=== PATIENT | male | born 1980 | race Asian ===

== ENCOUNTER 2020-08-13 08:13 | Emergency (ER) | payer BC, SELFPAY ==
--- NOTE | 2020-08-13 08:19 | ED.URI ---
HPI - URI/Sore Throat General Chief Complaint: Upper Respiratory Infection Stated Complaint: sore throat Time Seen by Provider: 08/13/20 08:32 Source: patient and RN notes reviewed Mode of arrival: ambulatory Limitations: no limitations History of Present Illness HPI Narrative: 40-year-old male presents with concern for swollen lymph node on the left side of his neck. He reports he is concerned he could have strep throat, because he had strep throat before and it made him very sick. He denies sore throat, headache, nausea, rhinorrhea, nasal congestion, cough, shortness of breath, fever, body aches, chills, sweats. Denies any known sick contacts. Denies the area gets larger or smaller when he eats. Reports it is tender only when he touches it. Reports he noticed the area 3 days ago. MD elicited complaint: sore throat Related Data Home Medications Medication Instructions Recorded Confirmed nortriptyline 08/13/20 08/13/20 Allergies Allergy/AdvReac Type Severity Reaction Status Date / Time SEASONAL ALLERGENS Allergy Mild Uncoded 01/06/10 19:32 Review of Systems Review of Systems: Narrative: CONSTITUTIONAL: Denies malaise, chills, sweats, or fever. EYES: Denies visual changes, redness, or discharge. ENT: Denies rhinorrhea, congestion, sinus pain, otalgia and sore throat. Reports swollen lymph node CARDIOVASCULAR: Denies chest pain, palpitations, or edema. RESPIRATORY: Denies cough or dyspnea. GASTROINTESTINAL: Denies abdominal pain, nausea, vomiting, diarrhea SKIN: Denies rash or itching. MUSCULOSKELETAL: Denies myalgia. NEUROLOGIC: Denies headache. All systems reviewed & are unremarkable except as noted in HPI and below PMFSH Social History Social History Gender identity (if verbalized by the patient): Male Comments At time of signature, agree with nursing past medical, surgical, social and family history. There is no relevant family history pertinent to the presenting complaint Exam Narrative: Exam Narrative: GENERAL: Well-appearing, well-nourished, and in no acute distress. HEAD: Normocephalic EYES: PERRLA, conjunctivae clear ENT: Nares clear, turbinates clear, discharge. Mucous membranes moist. TM pearly canchola with sharp light reflex bilaterally; no tragal tenderness. Oropharynx not erythematous without lesions. Tonsils not enlarged and without exudate, no drooling, no hoarseness, no trismus, uvula midline. NECK: Supple. Mild left submental lymphadenopathy CHEST: Clear to auscultation, breath sounds equal. No wheezing, rhonchi, rales, or stridor. No respiratory distress, speaks in full sentences. HEART: Regular rate and rhythm. No murmur heard. SKIN: Warm, dry, no rash. NEURO: Alert and oriented x3. PSYCH: Normal mood and affect Course Course Emergency Course: Patient is aware of diagnosis, understands and agrees to treatment plan. Anticipatory guidance given. Patient agrees to follow-up as directed and is aware of reasons to seek care at the emergency department. Portions of this record may have been created with voice recognition software Vital Signs Vital signs: Vital Signs Temperature 96.8 F L 08/13/20 08:31 Pulse Rate 86 08/13/20 08:31 Respiratory Rate 16 08/13/20 08:31 Blood Pressure 143/99 H 08/13/20 08:31 Pulse Oximetry 98 08/13/20 08:31 Temperature 96.8 F L 08/13/20 08:31 Pulse Rate 86 08/13/20 08:31 Respiratory Rate 16 08/13/20 08:31 Blood Pressure 143/99 H 08/13/20 08:31 Pulse Oximetry 98 08/13/20 08:31 Reviewed. MDM - URI/Sore Throat MDM Narrative Medical decision making narrative: Differential diagnosis considered: Thomas virus, strep pharyngitis, allergic rhinitis, upper respiratory tract infection, sinusitis, rhinosinusitis, nasopharyngitis. viral pharyngitis, otitis media, otitis externa, pneumonia, bronchitis, viral cough syndrome, viral syndrome, and influenza. Exam findings show no acute concerns or changes; patient is non-toxic appearing and is
[2020-08-13 08:31] VITALS: BP 143/99; PULSE 86; RESP 16; TEMP 36; O2SAT 98
== END 2020-08-13 08:45 | disposition home or self-care (01) ==
PROVIDERS: Emergency Provider Nurse Practitioner
DX: R59.1 Generalized enlarged lymph nodes (principal)
CPT/HCPCS: 87081; 87880; 99213; G0463

== ENCOUNTER 2023-11-17 08:21 | Outpatient (CLI) | payer BC, SELFPAY ==
--- NOTE | 2023-12-03 18:58 | WPDSLEEPSTUD ---
Sleep Study Date of Study: 11/17/23 Ordering Provider: Dinah Arechiga MD Interpreting Physician: Dinah Arechiga MD Sleep Study Type: Polysomnogram Height: 1.85 m Weight: 108.862 kg Body Mass Index: 31.6 Neck Circumference (inches): 17 [place]: 14 Reason for Sleep Study Hypersomnolence; history of central sleep apnea Sleep History Lance Wright is a 43-year-old man with excessive daytime sleepiness and a history of central sleep apnea. He is tired all the time. He wakes up feeling exhausted. He never awakens from sleep feeling short of breath. He never wakes at night with heartburn, belching or coughing.??He occasionally snores, occasionally snores loudly enough that others complain. He occasionally has trouble sleeping when he has a cold. He never wakes up gasping for breath during the night. He never has breathing problems at night. He rarely sweats excessively at night. He never notices his heart pounding or beating irregularly during the night. He occasionally falls asleep during the day. He never falls asleep involuntarily, never falls asleep while driving. He never experiences loss of muscle tone with strong emotion. He rarely has daytime difficulty at work due to excessive sleepiness. He never feels paralyzed on waking or falling asleep. He never experiences vivid dreams upon waking or falling asleep. He never feels afraid of going to sleep. He rarely has nightmares. He rarely recalls his dreams. He rarely has thoughts racing through his mind. He never feels sad or depressed. He rarely feels anxiety. He never notices parts of his body jerk. He never kicks during the night. He never feels crawling or aching feelings in his legs. He never feels leg pain at night. He never has morning jaw pain, rarely grinds his teeth at night. He rarely feels bothered by pain during the day, never awakened by pain during the night. He rarely wakes up feeling stiff in the morning, and he rarely wakes feeling sore or achy. He rarely awakens with pain in his neck, spine, or joints. Normal bedtime is between 10:00 p.m. and 11:00 p.m., falling asleep within 5-10 minutes, waking 1-2 times at night, usually goes to the bathroom to urinate. He is able to return to bed in moments. His normal wake time is between 6:00 a.m. and 7:00 a.m.. He keeps a similar schedule on the weekends. He normally gets 8 hours of sleep at night. He sometimes takes naps in the day, but generally does not feel refreshed after short 10-15 minute nap. Habits:??Tobacco: never smoker Caffeine:8 servings per day. Alcohol: none Recreational substances: none [facility] Past Medical History Medical History Allergic rhinitis Cluster headaches Hypogonadism Mixed sleep apnea Obstructive sleep apnea Surgical History Surgical History Status post tonsillectomy Social History Social History Smoking status: Never smoker Gender identity (if verbalized by the patient): Male Medications Home Medications Medication Instructions Recorded Confirmed Type nortriptyline 10 mg capsule 1 mg PO QID 08/13/20 10/20/23 History B-complex with vitamin C 1 cap PO DAILY 10/20/23 10/20/23 History cetirizine 10 mg tablet (Zyrtec) 10 mg PO DAILY PRN 10/20/23 10/20/23 History coenzyme Q10 100 mg capsule 100 mg PO DAILY 10/20/23 10/20/23 History (CoQ-10) diazepam 2 mg tablet 2 mg PO DAILY PRN 10/20/23 10/20/23 History omega 9-buj-sua-fish oil 1,000 mg 1 cap PO DAILY 10/20/23 10/20/23 History (120 mg-180 mg) capsule (Fish Oil) prochlorperazine maleate 10 mg 10 mg PO Q6H PRN 10/20/23 10/20/23 History tablet (Compazine) sumatriptan succinate 6 mg/0.5 mL mg subcut 10/20/23 10/20/23 History subcutaneous pen injector topiramate 50 mg tablet 50 mg PO Q12H 10/20/23 10/20/23 History vitamin E (dl, acetate)
[2023-12-06 12:30] VITALS: BMI 31.6
== END 2023-11-18 07:08 | disposition home or self-care (01) ==
LOC: ANHCSM 08:49
PROVIDERS: Visit Provider Internal Medicine Critical Care Medicine
DX: G47.39 Other sleep apnea (principal); G47.33 Obstructive sleep apnea (adult) (pediatric)
CPT/HCPCS: 95810

== ENCOUNTER 2023-12-20 08:52 | Outpatient (CLI) | payer BC, SELFPAY ==
--- NOTE | 2024-01-11 14:27 | WPDHOMESLEEP ---
Sleep Study - Home Unattended Date of Study: 12/20/23 Ordering Provider: Dinah Arehciga MD Interpreting Provider: Sylwia Hollins, DO Home Sleep Study Type: Watch PAT Height: 1.85 m Weight: 109.316 kg Body Mass Index: 31.8 Neck Circumference (inches): 17.5 [place]: 14 Reason for Sleep Study The patient had a polysomnogram done on 11/17/2023 that showed an overall AHI of 3.0 with desaturation down to 86%. Sleep History Lance Wright is a 43-year-old man with excessive daytime sleepiness and a history of central sleep apnea. He is tired all the time. He wakes up feeling exhausted. He never awakens from sleep feeling short of breath. He never wakes at night with heartburn, belching or coughing.??He occasionally snores, occasionally snores loudly enough that others complain. He occasionally has trouble sleeping when he has a cold. He never wakes up gasping for breath during the night. He never has breathing problems at night. He rarely sweats excessively at night. He never notices his heart pounding or beating irregularly during the night. He occasionally falls asleep during the day. He never falls asleep involuntarily, never falls asleep while driving. He never experiences loss of muscle tone with strong emotion. He rarely has daytime difficulty at work due to excessive sleepiness. He never feels paralyzed on waking or falling asleep. He never experiences vivid dreams upon waking or falling asleep. He never feels afraid of going to sleep. He rarely has nightmares. He rarely recalls his dreams. He rarely has thoughts racing through his mind. He never feels sad or depressed. He rarely feels anxiety. He never notices parts of his body jerk. He never kicks during the night. He never feels crawling or aching feelings in his legs. He never feels leg pain at night. He never has morning jaw pain, rarely grinds his teeth at night. He rarely feels bothered by pain during the day, never awakened by pain during the night. He rarely wakes up feeling stiff in the morning, and he rarely wakes feeling sore or achy. He rarely awakens with pain in his neck, spine, or joints. Normal bedtime is between 10:00 p.m. and 11:00 p.m., falling asleep within 5-10 minutes, waking 1-2 times at night, usually goes to the bathroom to urinate. He is able to return to bed in moments. His normal wake time is between 6:00 a.m. and 7:00 a.m.. He keeps a similar schedule on the weekends. He normally gets 8 hours of sleep at night. He sometimes takes naps in the day, but generally does not feel refreshed after short 10-15 minute nap. Habits:??Tobacco: never smoker Caffeine:8 servings per day. Alcohol: none Recreational substances: none PMFSH Past Medical History Medical History Allergic rhinitis Cluster headaches Hypogonadism Mixed sleep apnea Obstructive sleep apnea Surgical History Surgical History Status post tonsillectomy Social History Social History Smoking status: Never smoker Gender identity (if verbalized by the patient): Male Medications Home Medications Medication Instructions Recorded Confirmed Type nortriptyline 10 mg capsule 1 mg PO QID 08/13/20 10/20/23 History B-complex with vitamin C 1 cap PO DAILY 10/20/23 10/20/23 History cetirizine 10 mg tablet (Zyrtec) 10 mg PO DAILY PRN 10/20/23 10/20/23 History coenzyme Q10 100 mg capsule 100 mg PO DAILY 10/20/23 10/20/23 History (CoQ-10) diazepam 2 mg tablet 2 mg PO DAILY PRN 10/20/23 10/20/23 History omega 8-osw-qni-fish oil 1,000 mg 1 cap PO DAILY 10/20/23 10/20/23 History (120 mg-180 mg) capsule (Fish Oil) prochlorperazine maleate 10 mg 10 mg PO Q6H PRN 10/20/23 10/20/23 History tablet (Compazine) sumatriptan succinate 6 mg/0.5 mL mg subcut 10/20/23 10/20/23 History subcutaneous pen inje
[2024-01-11 14:32] VITALS: BMI 31.8
== END 2023-12-21 13:24 | disposition home or self-care (01) ==
LOC: ANHCSM 08:53
PROVIDERS: Visit Provider Internal Medicine Critical Care Medicine
DX: G47.33 Obstructive sleep apnea (adult) (pediatric) (principal); G47.39 Other sleep apnea
CPT/HCPCS: 95800

== ENCOUNTER 2024-12-23 08:38 | Outpatient (CLI) | payer BC, SELFPAY ==
--- NOTE | ~2024-12-23 | US_ITS ---
Renal-Bladder ultrasound Clinical History: Abnormal findings of blood chemistry Technique: Real-time sonographic imaging of the kidneys and urinary bladder was performed. Findings: The right kidney measures 11.7 cm in length and the left kidney measures 11.8 cm. There is no hydronephrosis or renal calculus identified. Renal cortical echogenicity is within normal limits. No renal mass lesion is identified. The urinary bladder is partially distended at the time of this exam. No intraluminal echoes are ident ified. No abnormal wall thickening is seen. Impression: Unremarkable ultrasound of the kidneys and urinary bladder. Reviewed, dictated and finalized at location M. Impression: Unremarkable ultrasound of the kidneys and urinary bladder.
--- NOTE | ~2024-12-23 | US_ITS ---
EXAMINATION: US retroperitoneal duplex ltd DATE: 12/23/2024 09:31 INDICATION: Elevated creatinine. TECHNIQUE: Multiple grayscale, color Doppler, and pulsed Doppler images of the kidneys and renal donna indira were obtained. COMPARISON: None. FINDINGS: The aorta peak systolic velocity is 50 cm/s. The right renal artery peak systolic velocity is 18 cm/s in the proximal segment, 50 to cm/s in the mid segment, and 38 cm/s in the distal segment. The left renal artery peak systolic velocity is 56 cm/s in the proximal segment, 47 cm/s in the mid segment, a nd 56 cm/s in the distal segment. IMPRESSION: 1. No Doppler evidence of renal artery stenosis. Reviewed, dictated and finalized at location A.
== END 2024-12-23 08:39 | disposition home or self-care (01) ==
LOC: MICIMG 08:39
PROVIDERS: PCP Internal Medicine; Visit Provider Nurse Practitioner
DX: R79.89 Other specified abnormal findings of blood chemistry (principal)
CPT/HCPCS: 76775; 93976

== ENCOUNTER 2025-04-27 09:26 | Outpatient (CLI) | payer BC, SELFPAY ==
[2025-05-22 12:47] VITALS: BMI 31.1
--- NOTE | 2025-05-22 12:47 | WPDSLEEPSTUD ---
Sleep Study Date of Study: 04/27/25 Ordering Provider: Lele Vega APRN Interpreting Physician: Sylwia Hollins DO Sleep Study Type: CPAP Titration Height: 1.85 m Weight: 107.048 kg Body Mass Index: 31.1 Neck Circumference (inches): 19 [place]: 19 Reason for Sleep Study Excessive daytime sleepiness Sleep History The patient is a 45-year-old male that had a sleep study ordered by the pulmonary group for excessive daytime sleepiness despite using CPAP. The patient rarely awakens from sleep short of breath. He denies awakening at night with heartburn, belching or cough. He constantly snores loudly enough that others complain. He frequently has trouble sleeping when he has a cold. He denies waking up gasping for air throughout the night. Frequently has breathing problems at night observed by himself or others. He rarely sweats excessively at night he denies having heart palpitations or irregular heartbeats during the night. He frequently falls asleep during the day but never while driving. He denies sleep paralysis and cataplexy. He constantly has trouble at school or work due to sleepiness. He rarely experiences dreamlike scenes upon awakening or falling asleep. He occasionally feels afraid of going to sleep. He rarely has nightmares. He rarely remembers his dreams. He occasionally has thoughts racing through his mind. He denies feeling sad or depressed. He rarely has anxiety. He denies having muscular tension. He rarely notices parts of his body jerk. He denies kicking during the night. He denies having crawling and aching feelings in his legs and denies having leg pain during the night. He occasionally grinds his teeth during sleep but never awakens with morning jaw pain. He denies being bothered by pain during the day and denies being awakened by pain during night. He rarely wakes up feeling stiff morning. He denies waking up with sore or achy muscles. He rarely wakes up with pain in the neck, spine and other Joints. He goes to bed between 10 to 10:30 p.m. every night. It takes him 30-45 minutes to fall asleep. He wakes up 2-3 times throughout the night to urinate and it takes about 30 minutes to fall back asleep. He wakes up at 6:30 a.m. on weekdays and between 7-9 a.m. on the weekends. He typically gets 8 hours of sleep per night. He will stay in bed for 5-30 minutes after waking up in the morning. He currently lives with his . He denies consuming any caffeinated beverages within 2 hours of bedtime. He denies engaging in physical exercise before bedtime. He denies reading before falling asleep. He will watch television before falling asleep. He denies taking naps in the afternoon or the evening. He consumes 5-7 caffeinated beverages per day. He denies tobacco, alcohol and recreational drug use. [facility] Past Medical History Medical History Elevated serum creatinine Mixed sleep apnea Allergic rhinitis Obstructive sleep apnea Cluster headaches Hypogonadism Surgical History Surgical History Status post tonsillectomy Family History Family History Father Hypertension Diabetes mellitus Mother Hypertension Diabetes mellitus Social History Social History Smoking status: Never smoker Alcohol intake: current Drinks per week: 4 Substance use type: does not use Gender identity (if verbalized by the patient): Male Medications Home Medications ?Medication ?Instructions ?Recorded ?Confirmed ?Type B-complex with vitamin C 1 cap PO DAILY 10/20/23 05/15/25 History cetirizine 10 mg tablet (Zyrtec) 10 mg PO DAILY PRN 10/20/23 05/15/25 History coenzyme Q10 100 mg capsule 100 mg PO DAILY 10/20/23 05/15/25 History (CoQ-10) omega 9-ign-icz-fish oil 1,000 mg 1 cap PO DAILY 10/20/23 05/15/25 History (120 mg-180 mg) capsule (Fish Oil) magnesium 200 mg tablet 400 mg PO BID 02/16/24 05/15/25 History aspirin 81 mg tablet 162 mg PO DAILY 02/08/25 05/15/25 History diazepam 2 mg tablet 2 mg PO DAILY PRN 02/08/25 05/15/25 History prochlorperazine maleate 10 mg 10 mg PO DAILY PRN 02/08/25 05/15/25 History tablet sumatriptan succinate 6 mg/0.5 mL mg subcut 02/08/25 05/15/25 History subcutaneous pen injector testosterone cypionate 200 mg/mL 130 mg (0.65 mL) IM WEEKLY #10 mL 02/12/25 05/15/25 Rx intramuscular oil (Depo-Testosterone) needle (disp) 18 G 18 gauge x 1 #100 ea 02/13/25 05/15/25 Rx (BD Regular [place]vel [place]) syringe with needle 3 mL 23 x 1 #800 ea 02/13/25 05/15/25 Rx (BD Eclipse Luer-Vikki) zolpidem 6.25 mg tablet,extended 6.25 mg PO QHS #30 tabs 05/11/25 05/15/25 Rx release,multiphase propranolol 80 mg capsule,24 80 mg PO DAILY 05/14/25 05/15/25 History hr,extended release (Inderal [place]) Sleep Procedure A full night CPAP Titration using the [employer] multi-channel system recorded the standard physiologic parameters including EEG, EOG, submentalis EMG, anterior tibialis EMG, EKG, body position, nasal and oral airflow using nasal pressure sensor and thermistor.? Respiratory parameters of chest and abdominal movements were recorded with Respiratory Inductance Plethysmography belts. Oxygen saturation was recorded by pulse oximetry. Video monitoring was also performed. Sleep stages, periodic limb movements, and EEG arousals were scored in 30 second epochs according to the criteria of the AASM Scoring Manual. The Apnea-Hypopnea Index was calculated using CMS guidelines for definition of hypopnea with 4% O2 desaturations while scoring respiratory events. Sleep Architecture The total recording time was 429.9 minutes.? The total sleep time was 378.0 minutes. Sleep latency was 2.3 minutes. REM latency was 46.0 minutes. Sleep efficiency was 87.9%. The patient had 29 awakenings for an awakening index of 4.6. Wake after Sleep Onset time was 49.5 minutes. The patient spent 29.0 minutes, 7.7% of total sleep time in Stage N1. The patient spent 236.5 minutes, 62.6% in Stage N2. The patient spent 0.0 minutes, 0.0% in Stage N3. The patient spent 112.5 minutes, 29.8% in Stage REM. Respiratory Analysis The patient had 16 hypopneas, 4 mixed apneas and 11 central apneas for an overall Apnea Hypopnea Index of 4.9 events per hour. The REM Apnea Hypopnea Index was 8.0. The NREM Apnea Hypopnea Index was 3.6. The patient had a Central Apnea Hypopnea Index of 1.7. There was no evidence of Kleber-Young Respirations. The patient was started on CPAP 5 cm H2O and titrated to CPAP 12 cm H2O due to central/mixed apneas and hypopneas. The patient was able to fall asleep starting on CPAP 5 cm H2O. The patient was able to achieve REM sleep starting on CPAP 5 cm H2O. The patient was able to achieve a residual AHI less than 5 with both NREM and REM sleep on 8 cm H2O, 9 cm H2O and 11 cm H2O. On CPAP 8 cm H2O, the patient spent 75.5 minutes in NREM and 25.5 minutes in REM with 3 central apneas, 2 mixed apneas and 2 hypopneas, resulting in an AHI of 4.2. On CPAP 9 cm H2O, the patient spent 56.5 minutes in NREM and 58 minutes in REM with 3 central apneas, 2 mixed apneas and 4 hypopneas, resulting in an AHI of 4.7. On CPAP 11 cm H2O, the patient spent 32 minutes in NREM and 18.5 minutes in REM with 2 central apneas and 2 hypopneas, resulting in an AHI of 4.8. The patient had a sleep efficiency of 95.3% on 8 cm H2O, 83% on 9 cm H2O and 98.1% on 11 cm H2O. Arousals There were 106 total arousals for an arousal index of 16.8. There were 30 spontaneous arousals for an index of 4.8. ?There were 10 arousals due to respiratory events for an index of 1.6. There were 47 arousals due to periodic limb movements for an index of 7.5.? There were 22 arousals due to isolated limb movements for an index of 3.5. Periodic Limb Movements The patient had 74 isolated limb movements with an index of 11.7. The patient had 212 periodic limb movements with index of 33.7, which is elevated (normal <15). Patient had a total of 286 limb movements with a total limb movement index of 45.4. Oximetry Data The patient had an average oxygen saturation of 94.9% in sleep with a minimum oxygen saturation of 87.0% and a maximum oxygen saturation of 98.0%. The patient had 22 oxygen desaturations that were 4% or greater resulting in an Oxygen Desaturation Index of 3.5.? The patient spent 0.2 minutes, 0.1% of total sleep time with an oxygen saturation below 88%. Snoring Profile Mild snoring was present in the beginning of the study. The snoring resolved once the patient was titrated to CPAP 11 cm H2O. Cardiac Profile The EKG showed normal sinus rhythm with rare PVCs. The patient had an average pulse rate of 58.3 bpm with a minimum pulse rate of 50.0 bpm and a maximum pulse rate of 83.0 bpm. ? EEG Profile No signs of seizure activity seen. Assessment and Plan Assessment and Plan (1) Obstructive sleep apnea: Code(s): G47.33 - Obstructive sleep apnea (adult) (pediatric) Status: Acute Assessment and Plan: The patient was started on CPAP 5 cm H2O and titrated to CPAP 12 cm H2O due to central/mixed apneas and hypopneas. The patient's sleep apnea resolved on multiple pressure settings with a high sleep efficiency. I recommend that the patient be prescribed CPAP 11 cm H2O without EPR, size medium [employer] DreamWear nasal mask, CPAP filters/tubing and heated humidity. This should be used with all episodes of sleep.? Compliance should be reviewed within 31-90 days of starting therapy for usage greater than 4 hours per night greater than 70% of the nights. The patient should be asked about symptoms such as?excessive daytime sleepiness, quality of sleep, decreased nocturia, increased?mental functioning such as memory, mood, and concentration. While the patient did have a significant number of periodic limb movements throughout the study, the frequency drastically decreased once the patient was titrated to the optimal pressure setting. Data The data obtained during this sleep study is adequate for interpretation. Certification This sleep study has been reviewed by a board certified sleep medicine physician.
== END 2025-04-28 06:19 | disposition home or self-care (01) ==
PROVIDERS: PCP Internal Medicine; Visit Provider Nurse Practitioner Family
DX: G47.33 Obstructive sleep apnea (adult) (pediatric) (principal)
CPT/HCPCS: 95811

== ENCOUNTER 2025-05-16 12:52 | Outpatient (CLI) | payer BC, SELFPAY ==
--- NOTE | ~2025-05-16 | US_ITS ---
Examination: US abdomen complete Clinical History: R53.83 - Other fatigue . Comparison: None Technique: Complete abdominal sonography Findings: Liver: Normal size. Echogenic. No intrahepatic biliary ductal dilatation. Normal hepatopedal flow main portal vein. Common duct: Normal caliber, 3 mm. Gallbladder: No stones. No wall thickening. No pericholecystic fluid. Spleen: Unremarkable. Pancreas: Visualized portions unremarkable. Kidneys: Unremarkable. Aorta: No aneurysmal dilatation. Retrohepatic IVC: Unremarkable. IMPRESSION: 1. No acute findings. 2. Hepatic steatosis and/or hepatocellular disease. 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
== END 2025-05-16 12:53 | disposition home or self-care (01) ==
LOC: MICIMG 12:53
PROVIDERS: PCP Internal Medicine
DX: K76.0 Fatty (change of) liver, not elsewhere classified (principal); K76.9 Liver disease, unspecified; R79.0 Abnormal level of blood mineral; R10.12 Left upper quadrant pain
CPT/HCPCS: 76700